=== PATIENT | female | born 1980 | race African-American/Black ===

== ENCOUNTER 2016-10-28 08:44 | Emergency (ER) | payer OTHER ==
[~2016-10-28] VITALS: Ht 170.2 cm; Wt 127.0 kg
--- NOTE | ~2016-10-28 | EKG ---
PATIENT: KAT MOLINA UNIT #: [id number] Ventricular Rate: 77 BPM Atrial Rate: 77 BPM P-R Interval: 136 ms QRS Duration: 78 ms Q-T Interval: 396 ms QTC Calculation(Bezet): 448 ms P [place]: 19 degrees Calculated R [place]: 2 degrees Calculated T [place]: -5 degrees Diagnosis Line: Normal sinus rhythm Diagnosis Line: Minimal voltage criteria for LVH, may be normal Diagnosis Line: variant Diagnosis Line: Borderline ECG Diagnosis Line: When compared with ECG of 19-DEC-2015 19:30, Diagnosis Line: Nonspecific T wave abnormality no longer evident Diagnosis Line: in Lateral leads Diagnosis Line: Confirmed by IVÁN SMITH MD ([id number]) on Diagnosis Line: 11/02/2016 10:39:55 AM INTERPRETING MD: LUIS MOHR
--- NOTE | ~2016-10-28 | CR72 ---
[facility]. [facility] A Service of [facility] & [facility] / [facility] RADIOLOGY TEXT RESULTS PATIENT: KAT MOLINA LOCATION: SED : 80 UNIT #: [id number] AGE: [address]: Eric Aguilar MD SEX: F ORDER DR: [id number] [place] [id number] E MR#: [id number] Acc #: [id number] NAME: KAT MOLINA : 1980 SEX: F STUDY DATE/TIME: 10/28/2016 9:38 UNIT: SED ROOM: STUDY DESCRIPTION: CR Chest Single View Portable Attending Physician: Eric Aguilar M.D. Ordering Physician: Eric Aguilar M.D. Primary Care Physician: Vinay Geiger M.D. MEDICAL IMAGING REPORT This report is preliminary unless electronic signature is present. EXAM Portable chest INDICATION Shortness of breath and chest pain today. COMPARISON 12/19/2015. FINDINGS Slight low-volume inspiration. No definite acute infiltrate. Heart size stable. IMPRESSION No active disease. Dictated by... Joel Santana M.D. THIS IS AN ELECTRONICALLY VERIFIED REPORT Joel Santana M.D. at 10/30/2016 7:10 AM CHELSI/iveth TD: 10/28/2016 15:16 JOB #: [id number] MEDICAL IMAGING REPORT Page 1 of 1
[~2016-10-28 08:44] MED LIST: ALBUTEROL17 GM INH; BENADRYL25 M1 PO; BLOOD PRESSURE MED; CATAPRES0.1 MG; CATAPRES0.1 MG PO; CIPRO PO; DELTASONE20 MG PO; FLEXERIL10 MG PO; HCTZ; HTN MED; IMITREX50 MG PO; INDERAL40 MG PO; LASIX; LISINOPRIL10 MG; LORTAB 5-325 M1 EACH PO; LORTAB 5/500 TA1 TA1 PO; MAXALT MLT10 MG/TAB PO; METFORMIN; METFORMIN HCL500 M1 PO; METFORMIN PO; METOPROLOL TAR25 MG PO; MIDRIN CAPSULE1 CAP PO; NAPROSYN500 MG PO; NO MEDICATIONS; NORVASC PO; PHENERGAN25 MG PO; PRINIVIL10 MG PO; PRINIVIL5 MG PO; PROMETHAZINE-D240 ML PO; TOPROL XL PO; ULTRAM PO; VICODIN 5/500 T1 TAB PO; VOLTAREN75 MG PO; ZESTRIL40 MG PO; ZIAGEN300 M1; ZITHROMAX PO; ZOFRAN ODT4 MG PO; [UNRECOGNIZED DRUG - OTHER] PO
[2016-10-28 09:27] LABS: BASOPHIL% 0.6 % (0-2.5); EOSINOPHIL# 0.1 X10e3 (0-0.7); EOSINOPHIL% 4.1 % (0.0-7.0); HEMATOCRIT 35.9 % (35.0-45.0); HEMOGLOBIN 11.7 gm/dL (12.0-16.0); LYMPHOCYTE# 1.2 X10e3 (1.0-3.5); LYMPHOCYTE% 35.4 % (17.0-45.0); MEAN CELL VOLUME 76.5 FL (83-96); MEAN CORPUSCULAR HEMOGLOBIN 24.9 PG (28-34); MEAN CORPUSCULAR HGB CONC 32.6 g/dL (30-36); MEAN PLATELET VOLUME 9.2 FL (6.5-11.5); MONOCYTE# 0.3 X10e3 (0-1.0); MONOCYTE% 7.5 % (3.0-12.0); NEUTROPHIL# 1.8 X10e3 (1.5-7.1); NEUTROPHIL% 52.4 % (40-75); PLATELET COUNT 228 X10e3 (140-420); WHITE BLOOD COUNT 3.4 X10e3 (4.0-10.5)
[2016-10-28 09:28] LABS: DIFF IND NO
[2016-10-28 09:39] LABS: POC - CKMB 2.3 ng/mL (0.0-7.9); POC - MYOGLOBIN 87.4 ng/mL (0.0-169.0); POC - TROPONIN <0.05 ng/mL (<=0.05)
[2016-10-28 09:41] LABS: POTASSIUM 3.8 mmol/L (3.5-5.1)
== END 2016-10-28 10:40 | disposition home or self-care (01) ==
LOC: SED 08:44
PROVIDERS: Emergency Medicine
DX: R07.89 Other chest pain (principal); R06.02 Shortness of breath; F41.9 Anxiety disorder, unspecified; I10 Essential (primary) hypertension; E11.9 Type 2 diabetes mellitus without complications; Z88.8 Allergy status to other drugs, medicaments and biological substances; Z79.84 Long term (current) use of oral hypoglycemic drugs; Z79.899 Other long term (current) drug therapy
CPT/HCPCS: 71010; 80048; 82553; 83874; 84484; 85025; 93005; 96374; 99285; J2060